=== PATIENT | male | born 1970 | race African-American/Black ===

== ENCOUNTER 2017-05-31 04:29 | Observation (INO) ==
[2017-05-31] MEDS ORDERED: hydrALAZINE 20 MG/1 ML VIAL IV STA (05:24)
[2017-05-31] MEDS ORDERED: LABETALOL 20 MG/4 ML SYRINGE IV STA (05:25)
[2017-05-31 05:52] LABS: Basophils % 0.4 % (0.0-0.8); Eosinophils # 0.1 10*3/uL (0.0-0.87); Eosinophils % 1.1 % (0.00-10.9); Hematocrit 45.6 VOL% (42.0-52.0); Hemoglobin 15.9 GM/DL (14.0-18.0); Immature Granulocytes % 0.3 %; Immature Granulocytes Absolute 0.02 #; Lymphocytes % 25.3 % (21.2-54.2); Mean Corpuscular HGB Conc 34.9 GM/DL (32-36); Mean Corpuscular Hemoglobin 30 PG (27-34); Mean Corpuscular Volume 86.2 FL (87-102); Mean Platelet Volume 11.6 FL (9.6-12.0); Monocytes # 0.6 10*3/uL (0.11-0.8); Monocytes % 7.4 % (1.7-12.7); Neutrophils # 5.2 10*3/uL (1.4-7.4); Neutrophils % 65.5 % (38.7-73.9); Platelet Count 148 T/CUMM (130-400); Red Blood Count 5.29 MC/CUMM (3.8-5.5); Red Cell Distribution Width 13.3 % (9.3-17.3)
[2017-05-31] MEDS ORDERED: LABETALOL 20 MG/4 ML SYRINGE IV ONE (06:00)
[2017-05-31] MEDS ORDERED: hydrALAZINE 20 MG/1 ML VIAL ONE (06:00)
[2017-05-31] MEDS ORDERED: amLODIPine 5 MG TABLET PO STA (06:13)
[2017-05-31] MEDS ORDERED: amLODIPine 5 MG TABLET ONE (06:17)
[2017-05-31 06:24] LABS: Albumin 3.7 G/DL (3.4-5.0); Bilirubin,Total 0.5 MG/DL (0.2-1.0); Calcium 8.7 MG/DL (8.5-10.1); Osmolality,Calculated 282.3 MOS/KG (273-304); Potassium 4.1 MMOL/L (3.5-5.1); Total Protein 7.2 G/DL (6.4-8.3)
[2017-05-31] MEDS ORDERED: ENOXAPARIN 100 MG/ML SYRINGE SUBCUT STA (06:49)
[2017-05-31] MEDS ORDERED: ASPIRIN CHEW 81 MG TABLET PO STA (06:49)
[2017-05-31] MEDS ORDERED: ASPIRIN 325 MG TABLET PO STA (06:50)
[2017-05-31] MEDS ORDERED: ASPIRIN CHEW 81 MG TABLET PO ONE (06:52)
[2017-05-31] MEDS ORDERED: ENOXAPARIN 100 MG/ML SYRINGE SUBCUT ONE (06:52)
[2017-05-31] MEDS ORDERED: ACETAMINOPHEN 325 MG TABLET PO PRN (08:13)
[2017-05-31] MEDS: ENOXAPARIN 40 MG/0.4 ML SYRINGE SUBCUT SCH (10:04)
[2017-05-31] MEDS: LISINOPRIL 20 MG TABLET PO SCH (11:09)
[2017-05-31] MEDS: METOPROLOL SUCCINATE XL 100 MG TABLET PO SCH (11:09)
[2017-05-31] MEDS: FUROSEMIDE 40 MG/4 ML VIAL IV SCH (15:48)
[2017-05-31] MEDS ORDERED: hydrALAZINE 20 MG/1 ML VIAL IV PRN (19:11)
[2017-05-31] MEDS: amLODIPine 10 MG TABLET PO SCH (20:15)
[2017-05-31 23:00] LABS: Apearance,Urine CLEAR (Clear); Bacteria,Urine Occasional /HPF (Few); Bilirubin,Urine Negative (Negative); Blood, Urine Negative (Negative); Glucose,Urine (UA) Negative (Negative); Ketones,Urine Negative (Negative); Mucus,Urine Occasional /LPF (Occasional); Nitrite,Urine Negative (Negative); Protein,Urine Negative; RBC,Urine <1 /HPF (0-4); Squamous Epithelial Cell,Urine Occasional /HPF (0-10); Urine Color Colorless (Yellow); Urine Specific Gravity 1.005 (1.001-1.035); Urine Urobilinogen < 2.0 EU/DL (0.2-1.0); WBC,Urine 14 /HPF (0-6)
[2017-06-01 07:10] LABS: Calcium 8.9 MG/DL (8.5-10.1); Osmolality,Calculated 280.4 MOS/KG (273-304); Potassium 3.9 MMOL/L (3.5-5.1)
[2017-06-01 07:33] VITALS: BP 143/108
[2017-06-01] MEDS: FUROSEMIDE 40 MG/4 ML VIAL IV SCH (08:57)
[2017-06-01] MEDS: amLODIPine 10 MG TABLET PO SCH (08:58)
[2017-06-01] MEDS: METOPROLOL SUCCINATE XL 100 MG TABLET PO SCH (08:58)
[2017-06-01] MEDS: LISINOPRIL 20 MG TABLET PO SCH (08:58)
[2017-06-01] MEDS: ENOXAPARIN 40 MG/0.4 ML SYRINGE SUBCUT SCH (08:58)
== END 2017-06-01 11:10 | disposition home or self-care (01) ==
LOC: N.EDINP 04:29 → N.ED 04:29 → N.EDINP 09:34 → N.5E 09:59
PROVIDERS: ADMIT Internal Medicine Geriatric Medicine; ATTEND Internal Medicine Geriatric Medicine